=== PATIENT | male | born 1960 | race Caucasian/White ===

== ENCOUNTER 2019-06-18 13:15 | Emergency (ER) | payer MEDICAID, SELFPAY ==
[2019-06-18 13:22] VITALS: BP 180/100; PULSE 102; RESP 18; TEMP 35.8; O2SAT 96
--- NOTE | 2019-06-18 13:31 | ED.GENADUL_ITS ---
Discharge Plan Disposition Patient Disposition: HOME Condition: Stable Discharge Details Chief Complaint: Cellulitis Clinical Impression: Dog bite, Cellulitis of forearm, right Primary Care Provider: Vasu Martin ED Provider: Glenna Sneed Home Meds and New Rx's Prescriptions: New amoxicillin-pot clavulanate [Augmentin] 875-125 mg tablet 1 tab PO BID 10 Days Qty: 20 RF: 0 Continued lisinopril-hydrochlorothiazide 10-12.5 mg tablet 1 tab PO DAILY Qty: 90 RF: 3 albuterol sulfate [ProAir HFA] 90 mcg/actuation HFA aerosol inhaler 1 - 2 puff Inhalation Q4H PRN Qty: 1 RF: 5 Flovent HFA 110 mcg/actuation HFA aerosol inhaler 110 mcg Inhalation BID Qty: 3 RF: 5 Discharge Instructions Instructions: Animal Bite (ED), Cellulitis (ED) Additional Instructions: Take the antibiotics until finished. Alternate tylenol and motrin as needed and directed for pain. If you notice any worsening redness, pain or swelling extending beyond the marker line, return to the emergency department. Follow-up with a primary care doctor within the next 1 to 2 weeks for further evaluation as needed. Discharge Data Discharge Physician: Glenna Sneed Medical Decision Making 59-year-old male presents with dog bite to right wrist with surrounding edema an d erythema noted to right dorsal hand and extending up to right mid forearm. Patient states he was bit by his dog after trying to break up a fight between both of his dogs. He states they are up-to-date on his shots. He states he is not up-to-date on his tetanus. Right dorsal medial wrist with 2 superficial lacerations that are healing. There is mild to moderate cellulitis on the right dorsal hand and forearm. No induration or fluctuance, no evidence of abscess. Neurovascular intact. Pat ient appears nontoxic. Patient given tetanus. He was given with prescription for Augmentin. A marker line was placed around edges of wound. He was advised to return to the ER if he has any worsening signs of infection. He is traveling to [place] in the next 2 days. He is advised to follow-up with any doctor with any worsening symptoms. HPI General Mode of arrival: ambulatory . Date/Time Provider Initiated Documentation: 06/18/19 13:31 . Limitations to Documentation: no limitations . Information obtained by: patient . History of Present Illness 59 year old M presents to the emergency department with the chief complaint of Dog bite right wrist, redness and pain right hand to forearm, and is localized to the right and upper extremity. Patient reports no radiation (Extending from right wrist down to hand and up to forearm). Patient started experiencing this week(s) (1) and it has been constant. No relieving factors improve symptom(s), No exacerbating factors reported . Patient notes no other symptoms.; denies fever/chills. Patient did receive the following treatments prior to arrival, none Related Data Home Medications Medication Instructions Recorded Confirmed lisinopril 10 1 tab PO DAILY #90 tab-cap 09/09/18 06/18/19 mg-hydrochlorothiazide 12.5 mg tablet albuterol sulfate 90 mcg/actuation 1 - 2 puff INHALATION Q4H PRN #1 03/29/19 06/18/19 aerosol inhaler inhaler fluticasone propionate 110 110 mcg INHALATION BID #3 ea 04/17/19 06/18/19 mcg/actuation HFA aerosol inhaler amoxicillin-pot clavulanate 1 tab PO BID 10 Days #20 tab 06/18/19 [Augmentin] Previous Rx's Medication Instructions Recorded lisinopril 10 1 tab PO DAILY #90 tab-cap 09/09/18 mg-hydrochlorothiazide 12.5 mg tablet albuterol sulfate 90 mcg/actuation 1 - 2 puff INHALATION Q4H PRN #1 03/29/19 aerosol inhaler inhaler fluticasone propionate 110 110 mcg INHALATION BID #3 ea 04/17/19 mcg/actuation HFA aerosol inhaler amoxicillin-pot clavulanate 1 tab PO BID 10 Days #20 tab 06/18/19 [Augmentin] Allergies Allergy/AdvReac Type Severity Reaction Status Date / Time pollen,cats Allergy Intermediate Wheezing Uncoded 06/18/19 13:29 General Stated Complaint: Cellulitis SAW: 3 Review of Systems All systems reviewed & are unremarkable except as noted in HPI and below Constitutional Constitutional: Reports as per HPI, Denies chills and Denies fever(s) Eyes Eyes: Denies blurry vision ENT Ears, Nose, Mouth, and Throat: Denies dizziness, Denies sore throat and Denies throat swelling Cardiovascular Cardiovascular: Denies chest pain and Denies dyspnea Respiratory Respiratory: Denies cough and Denies dyspnea Gastrointestinal Gastrointestinal: Denies abdominal pain, Denies diarrhea and Denies vomiting Genitourinary Genitourinary: Denies hematuria and Denies dysuria Musculoskeletal Musculoskeletal: Denies back pain and Denies numbness Integumentary/Breasts Skin/Breast: Denies lesions, Reports erythema and Denies rash Neurologic Neurologic: Denies dizziness, Denies focal weakness and Denies numbness Allergic/Immunologic Allergic/Immunologic: Denies throat swelling PFSH Family History (System 09/14/18 @ 11:39 by Tessy Garcia) Mother Neoplasm LYMPH NODE Father Neoplasm LUNG Sister No problems noted. Social History (System 09/14/18 @ 11:39 by Tessy Garcia) Smoking/Tobacco Use Status: Former Tobacco Use Drug use: Socially Do you feel safe at home: Yes Do you feel safe in your relationship?: Yes Exam Const General: cooperative, healthy appearing and no acute distress HENMT Head: normal to inspection Face and sinus: normal facial exam Eyes General: appearance normal, both eyes and all related structures EOM: EOM intact bilaterally Neck Neck: normal visual inspection and No submandibular swelling Resp Effort & Inspection: normal respiratory effort and able to speak in complete sentences Cardio Rate: regular rate Skin General skin exam: no rashes or lesions noted Neuro General: alert, awake and oriented x3 Cognition: normal cognition Speech: speech normal Motor: muscle tone normal throughout Sensory Exam: no sensory deficits noted Extrem Elbow/forearm/wrist images: 1. Erythema and edema, mild to moderate 2. 2 superficial lacerations, now healing. 3. Erythema and edema, mild to moderate Other: Right radial and ulnar pulses intact. Cap refill less than 2 seconds. Psych Appearance: grossly normal Mental Status: mental status grossly normal Speech and Movement: speech and movement normal Affect: normal affect Course Vital Signs Vital signs: Vital Signs Temperature 96.4 F L 06/18/19 13:22 Pulse 102 H 06/18/19 13:22 Respiratory Rate 18 06/18/19 13:22 Blood Pressure 180/100 H 06/18/19 13:22 Pulse Oximetry 96 06/18/19 13:22 Temperature 96.4 F L 06/18/19 13:22 Temperature Source Temporal Artery Scan 06/18/19 13:22 Pulse 102 H 06/18/19 13:22 Respiratory Rate 18 06/18/19 13:22 Blood Pressure 180/100 H 06/18/19 13:22 Blood Pressure Position Sitting 06/18/19 13:22 Pulse Oximetry 96 06/18/19 13:22 Oxygen Delivery Method Room Air 06/18/19 13:22 Oxygen Flow Rate 0 06/18/19 13:22 Pain Level 3 06/18/19 13:22
--- NOTE | 2019-06-18 14:05 | NUR.NOTE ---
Nursing Note:Animal bite report faxed to [facility]
== END 2019-06-18 13:53 | disposition home or self-care (01) ==
LOC: ER 13:41
PROVIDERS: Emergency Provider Physician Assistant; PCP Emergency Medicine
DX: S61.551A Open bite of right wrist, initial encounter (principal); L03.113 Cellulitis of right upper limb; W54.0XXA Bitten by dog, initial encounter
CPT/HCPCS: 90471; 99284

== ENCOUNTER 2020-01-30 01:59 | Outpatient (CLI) | payer MEDICAID, SELFPAY ==
[2020-01-30 15:23] LABS: CREATININE 0.64 mg/dL (0.70-1.30); Potassium 4.5 mmol/L (3.5-5.1)
== END 2020-01-30 02:19 ==
PROVIDERS: PCP Nurse Practitioner; Visit Provider Nurse Practitioner
DX: I10 Essential (primary) hypertension (principal)
CPT/HCPCS: 36415; 82565; 84132

== ENCOUNTER 2021-03-18 03:33 | Outpatient (CLI) | payer MEDICAID, SELFPAY ==
[2021-03-18 16:13] LABS: Hemoglobin A1C 5.8 % (<5.7)
[2021-03-18 16:43] LABS: ALT 21 U/L (16-63); AST 16 U/L (15-37); Albumin 4.4 g/dL (3.4-5.0); Alkaline Phosphatase 58 U/L (46-116); Bilirubin, Direct 0.1 mg/dL (0.0-0.2); Bilirubin, Total 0.4 mg/dL (0.2-1.0); CREATININE 0.8 mg/dL (0.70-1.30); Potassium 4.1 mmol/L (3.5-5.1); Total Protein 7.7 g/dL (6.4-8.2)
[2021-03-18 22:56] LABS: PSA, Screening 2.5 ng/mL (0.0-3.5)
[2021-03-19 10:58] LABS: Varicella IgG Antibody Positive (See Note)
== END 2021-03-18 03:34 | disposition home or self-care (01) ==
LOC: LBO 03:33
PROVIDERS: PCP Nurse Practitioner; Visit Provider Nurse Practitioner
DX: I10 Essential (primary) hypertension; J45.909 Unspecified asthma, uncomplicated; Z13.1 Encounter for screening for diabetes mellitus; F10.10 Alcohol abuse, uncomplicated; Z11.59 Encounter for screening for other viral diseases; Z12.5 Encounter for screening for malignant neoplasm of prostate
CPT/HCPCS: 36415; 80076; 84153; 86787; 82565; 83036; 84132

== ENCOUNTER 2021-07-28 02:14 | Outpatient (CLI) | payer MEDICAID, SELFPAY ==
[2021-07-28 10:52] LABS: Source Nasal/Nares
[2021-07-28 15:03] LABS: COVID-19 PCR Negative (Negative)
== END 2021-07-28 02:15 | disposition home or self-care (01) ==
LOC: LBO 02:14
PROVIDERS: PCP Nurse Practitioner; Visit Provider Student in an Organized Health Care Education/Training Program
DX: Z20.822 Contact with and (suspected) exposure to COVID-19 (principal); Z01.818 Encounter for other preprocedural examination
CPT/HCPCS: 87635

== ENCOUNTER 2021-07-29 09:56 | Day surgery (SDC) | payer MEDICAID, SELFPAY ==
[2021-07-29 10:22] VITALS: BP 115/77; PULSE 65; RESP 18; TEMP 36.4; O2SAT 97
[2021-07-29] MEDS: Lactated Ringers 1,000 ML 80 ML IV (10:54)
--- NOTE | 2021-07-29 11:00 | HPE_ITS ---
Documented by User: PETER Oglesby 07/29/21 11:16 Assessment and Plan Assessment and plan (1) Dupuytren contracture: Status: Acute Assessment and plan: Dupuytren's contracture release/partial palmar fasciectomy left hand. Details of surgery were discussed with patient as well as risks and pertinent anatomy. All questions were answered. History of Present Illness History of Present Illness Chief Complaint: Bilateral hand contracture. Narrative: Rahul is a 61-year-old male who comes in today for a release of Dupuytren's contracture of his left hand. Both hands have similar involvement of the ring and small fingers.? He has had the nodularity for some time and the contracture has seemingly developed over the past few years.? He is unable to fully straighten the index and middle fingers.? It does not cause him significant pain although he is worried about the overall function of his hand with the worsening contracture of the hands.? Both hands bother him similarly.? He has been reluctant to pursue any treatments but does find that the lack of motion has become more problematic.? He is unable to fully extend the ring finger and little finger of both hands. Since this is interfering with his daily life, Dr. Qureshi does offer a release of the Dupuytren's contracture with partial palmar fasciectomy starting with his left hand. He is anxious to proceed. Pertinent Surgical Information History of asthma and HTN controlled with medication. Patient denies history of CVA, [place], angina, COPD, renal or liver disorders, hepatitis, bleeding disorders, diabetes, immune or thyroid disorders. No complications from anesthesia. Review of Systems Constitutional Constitutional: Denies fever(s) ENT Ears, Nose, Mouth, and Throat: Denies dizziness and Denies sore throat Cardiovascular Cardiovascular: Denies chest pain, Denies palpitations and Denies dyspnea Respiratory Respiratory: Denies cough and Denies dyspnea Gastrointestinal Gastrointestinal: Denies abdominal pain, Denies melena, Denies hematochezia, Denies diarrhea, Denies nausea and Denies vomiting Genitourinary Genitourinary: Denies hematuria and Denies dysuria Neurologic Neurologic: Denies dizziness Endocrine Endocrine: Denies palpitations PFSH All Active Problems HTN (hypertension) (Chronic) Asthma (Chronic) Excessive drinking alcohol (Acute) Dupuytren contracture (Acute) S/P Release LEFT: 07/29/2021 Elevated glucose (Acute 07/14/16) Chronic pain of both knees (Acute 05/06/16) Dry skin dermatitis (Acute) Medical History COPD exacerbation (05/06/16) Heavy alcohol use (05/06/16) History of tobacco use Surgical History (Updated 07/29/21 @ 11:03 by PETER Oglesby) H/O knee surgery Family History (Updated 02/07/20 @ 17:25 by Leona Wray) Mother , 78 Neoplasm LYMPH NODE Father , 76 Neoplasm LUNG Social History (Updated 02/08/21 @ 13:07 by Leona Wray) Smoking/Tobacco Use Status: Former Tobacco Use tobacco type: cigarettes Quit Date: 06/07/09 Tobacco: How many years used: 35 Second Hand Exposure: Yes Smoking risk assessment performed?: Yes Alcohol Intake: current Alcohol Intake frequency: a few times a week Alcohol type: hard liquor Drug use: Daily Substance use type: marijuana Details: Last mj use 07/28/21 Household members: significant other Communication Needs: Corrective Lenses Do you need help understanding health information?: Never Pets and animals: Yes Pets and animals: dog(s) Sexually active: Yes Do you think of yourself as: straight/heterosexual Current gender identity: male What is your relationship status?: living with partner How often do you talk on the phone with friends or family?: three or more times per week How often do you get together with friends or relatives?: twice per week How often do you attend oriental orthodox or sabianist services?: decline to answer Do you belong to any clubs or organized social groups?: yes Panel score (0-1 are the most socially isolated patients): 3 Duration: < 15 minutes/day Janet/Confucianism: Other Special janet needs: No Seatbelt use: always Helmet use: No Drive intox or ride w/intox stake driver: No Do you feel safe at home: Yes Do you feel safe in your relationship?: Yes Additional Social history: Unable to assess privately, in room. Meds Allergies and Home Medications Allergies Allergy/AdvReac Type Severity Reaction Status Date / Time pollen,cats Allergy Intermediate Wheezing Uncoded 07/29/21 10:06 Home Medications Medication Instructions Recorded Confirmed Type cyclosporine 0.05 % eye drops in a 1 drp OP Q12H 12/13/19 07/29/21 History dropperette (Restasis) fluticasone propionate 110 110 mcg INHALATION BID #3 ea 10/09/20 07/29/21 Rx mcg/actuation HFA aerosol inhaler (Flovent HFA) triamcinolone acetonide 0.1 % 1 applic TOPICAL BID #80 g 10/09/20 07/29/21 Rx topical cream hydrochlorothiazide 25 mg tablet 25 mg PO DAILY #90 tab 01/09/21 07/29/21 Rx amlodipine 10 mg tablet 10 mg PO DAILY #90 tab 02/06/21 07/29/21 Rx lisinopril 40 mg tablet 40 mg PO DAILY #90 tab 02/06/21 07/29/21 Rx ammonium lactate 5 % lotion 1 applic TOPICAL BID #226 g 07/01/21 07/29/21 Rx (Lac-Hydrin Five) metoprolol succinate 50 mg 50 mg PO DAILY #90 tab 07/01/21 07/29/21 Rx tablet,extended release 24 hr albuterol sulfate 90 mcg/actuation 1 - 2 puff INHALATION Q4H PRN #1 07/09/21 07/29/21 Rx aerosol inhaler (ProAir HFA) inhaler hydroxyzine HCl 25 mg tablet 25 mg PO TID PRN #30 tab 07/17/21 07/29/21 Rx acetaminophen 500 mg tablet 1,000 mg PO TID #90 tab 07/29/21 Rx hydrocodone 5 mg-acetaminophen 325 1 tab PO Q6H PRN #6 tab 07/29/21 Rx mg tablet ibuprofen 600 mg tablet 600 mg PO TID PRN #90 tab 07/29/21 Rx Exam Const General: cooperative and no acute distress Orientation: alert and awake [facility] Head: normocephalic and atraumatic Eyes Conjunctivae: conjunctivae normal Sclera: sclerae normal Resp Effort & Inspection: normal respiratory effort Auscultation: clear to auscultation bilaterally and wheezes lower bilaterally Cardio Rate: regular rate Rhythm: regular rhythm Heart Sounds: S1 normal, S2 normal and no murmurs Results Last Vital Signs Temp 97.5 F L 07/29/21 10:22 Pulse 65 07/29/21 10:22 Resp 18 07/29/21 10:22 BP 115/77 07/29/21 10:22 Pulse Ox 97 07/29/21 10:22 Documented by User: Romie Qureshi MD 07/29/21 11:54 Assessment and Plan Assessment and plan (1) Dupuytren contracture: Status: Acute Assessment and plan: Dupuytren's contracture release/partial palmar fasciectomy left hand. Details of surgery were discussed with patient as well as risks and pertinent an atomy. All questions were answered. I interviewed and examined the patient with Shabbir Guerrero PA-C. I agree with the documentation as above. The assessment and plan were formulated with my direct involvement. Rahul has bilateral hand Dupuytren's contracture. His left side is bothering the most. He has involvement of the little finger, ring finger, and thumb. Both have contractures. Both have nodules. I discussed treatment options with him previously in the office and he desires to proceed with open partial palmar fasciectomy. I reviewed the surgery once again with him today. I discussed the risk of the procedure to include bleeding, infection, pain, stiffness, damage to nerves and vessels, damage to muscle tendons, recurrence. Despite these risk, he elects to proceed. Romie Qureshi MD FAAOS FAAHKS PFSH All Active Problems HTN (hypertension) (Chronic) Asthma (Chronic) Excessive drinking alcohol (Acute) Dupuytren contracture (Acute) S/P Release LEFT: 07/29/2021 Elevated glucose (Acute 07/14/16) Chronic pain of both knees (Acute 05/06/16) Dry skin dermatitis (Acute) Medical History COPD exacerbation (05/06/16) Heavy alcohol use (05/06/16) History of tobacco use Surgical History (Updated 07/29/21 @ 11:03 by PETER Oglesby) H/O knee surgery Family History (Updated 02/07/20 @ 17:25 by Leona Wray) Mother , 78 Neoplasm LYMPH NODE Father , 76 Neoplasm LUNG Social History (Updated 02/08/21 @ 13:07 by Leona Wray) Smoking/Tobacco Use Status: Former Tobacco Use tobacco type: cigarettes Quit Date: 06/07/09 Tobacco: How many years used: 35 Second Hand Exposure: Yes Smoking risk assessment performed?: Yes Alcohol Intake: current Alcohol Intake frequency: a few times a week Alcohol type: hard liquor Drug use: Daily Substance use type: marijuana Details: Last mj use 07/28/21 Household members: significant other Communication Needs: Corrective Lenses Do you need help understanding health information?: Never Pets and animals: Yes Pets and animals: dog(s) Sexually active: Yes Do you think of yourself as: straight/heterosexual Current gender identity: male What is your relationship status?: living with partner How often do you talk on the phone with friends or family?: three or more times per week How often do you get together with friends or relatives?: twice per week How often do you attend oriental orthodox or sabianist services?: decline to answer Do you belong to any clubs or organized social groups?: yes Panel score (0-1 are the most socially isolated patients): 3 Duration: < 15 minutes/day Janet/Confucianism: Other Special janet needs: No Seatbelt use: always Helmet use: No Drive intox or ride w/intox stake driver: No Do you feel safe at home: Yes Do you feel safe in your relationship?: Yes Additional Social history: Unable to assess privately, in room. Meds Allergies and Home Medications Allergies Allergy/AdvReac Type Severity Reaction Status Date / Time pollen,cats Allergy Intermediate Wheezing Uncoded 07/29/21 10:06 Home Medications Medication Instructions Recorded Confirmed Type cyclosporine 0.05 % eye drops in a 1 drp OP Q12H 12/13/19 07/29/21 History dropperette (Restasis) fluticasone propionate 110 110 mcg INHALATION BID #3 ea 10/09/20 07/29/21 Rx mcg/actuation HFA aerosol inhaler (Flovent HFA) triamcinolone acetonide 0.1 % 1 applic TOPICAL BID #80 g 10/09/20 07/29/21 Rx topical cream hydrochlorothiazide 25 mg tablet 25 mg PO DAILY #90 tab 01/09/21 07/29/21 Rx amlodipine 10 mg tablet 10 mg PO DAILY #90 tab 02/06/21 07/29/21 Rx lisinopril 40 mg tablet 40 mg PO DAILY #90 tab 02/06/21 07/29/21 Rx ammonium lactate 5 % lotion 1 applic TOPICAL BID #226 g 07/01/21 07/29/21 Rx (Lac-Hydrin Five) metoprolol succinate 50 mg 50 mg PO DAILY #90 tab 07/01/21 07/29/21 Rx tablet,extended release 24 hr albuterol sulfate 90 mcg/actuation 1 - 2 puff INHALATION Q4H PRN #1 07/09/21 07/29/21 Rx aerosol inhaler (ProAir HFA) inhaler hydroxyzine HCl 25 mg tablet 25 mg PO TID PRN #30 tab 07/17/21 07/29/21 Rx acetaminophen 500 mg tablet 1,000 mg PO TID #90 tab 07/29/21 Rx hydrocodone 5 mg-acetaminophen 325 1 tab PO Q6H PRN #6 tab 07/29/21 Rx mg tablet ibuprofen 600 mg tablet 600 mg PO TID PRN #90 tab 07/29/21 Rx
--- NOTE | 2021-07-29 11:00 | W.ANESPRE ---
General Info Date of Service Date Performed: 07/29/21 Height: 5 ft 7 in Weight: 87.9 kg Body Mass Index (BMI): 30.3 Surgical Procedure: Operation Date: 07/29/21 11:55 Proposed Procedure Side Surgeon p Open PartialHand Palmar Fasciectomy Left Romie Qureshi MD Meds Allergies and Home Medications Allergies Allergy/AdvReac Type Severity Reaction Status Date / Time pollen,cats Allergy Intermediate Wheezing Uncoded 07/29/21 10:06 Home Medication Medication Instructions Recorded cyclosporine 0.05 % eye drops in a 1 drp OP Q12H 12/13/19 dropperette (Restasis) fluticasone propionate 110 110 mcg INHALATION BID #3 ea 10/09/20 mcg/actuation HFA aerosol inhaler (Flovent HFA) triamcinolone acetonide 0.1 % 1 applic TOPICAL BID #80 g 10/09/20 topical cream hydrochlorothiazide 25 mg tablet 25 mg PO DAILY #90 tab 01/09/21 amlodipine 10 mg tablet 10 mg PO DAILY #90 tab 02/06/21 lisinopril 40 mg tablet 40 mg PO DAILY #90 tab 02/06/21 ammonium lactate 5 % lotion 1 applic TOPICAL BID #226 g 07/01/21 (Lac-Hydrin Five) metoprolol succinate 50 mg 50 mg PO DAILY #90 tab 07/01/21 tablet,extended release 24 hr albuterol sulfate 90 mcg/actuation 1 - 2 puff INHALATION Q4H PRN #1 07/09/21 aerosol inhaler (ProAir HFA) inhaler hydroxyzine HCl 25 mg tablet 25 mg PO TID PRN #30 tab 07/17/21 Current Visit Medications: Current Medications Generic Name Dose Route Start Last Admin Trade Name Freq PRN Reason Stop Dose Admin Ringer's Solution 1,000 mls @ 80 mls/hr 07/29/21 06:00 07/29/21 10:54 IV 08/27/21 23:59 80 mls/hr INFUSION PAULINE Administration Cefazolin Sodium/Dextrose 2 gm in 50 mls @ 100 mls/hr 07/29/21 06:00 Ancef Duplex IVPB 07/29/21 16:00 PREOP PAULINE IV Miscellaneous Supplies 1 each 07/29/21 06:00 Iv Access IV 08/27/21 23:59 DIRECTED PAULINE Sodium Chloride 0 ml 07/29/21 06:00 Normal Saline Flush 10 Ml Syr IV 08/27/21 23:59 PRN PRN Sodium Chloride 0 ml 07/29/21 06:00 Normal Saline 10 Ml Vial IJ 08/27/21 23:59 DIRECTED PRN Sterile Water 0 ml 07/29/21 06:00 Water,Injection,Sterile 10 Ml Vial IJ 08/27/21 23:59 DIRECTED PRN PFSH Active Problems Active Problems: Problem Status Onset Code HTN (hypertension) I10 Asthma J45.909 Excessive drinking alcohol F10.10 Dupuytren contracture M72.0 Elevated glucose 07/14/16 R73.09 Chronic pain of both knees 05/06/16 M25.561, M25.562, G89.29 Dry skin dermatitis L85.3 Medical History Medical History COPD exacerbation (05/06/16) Heavy alcohol use (05/06/16) History of tobacco use Surgical History Surgical History (Updated 07/29/21 @ 11:03 by PETER Oglesby) H/O knee surgery Tobacco Smoking/Tobacco Use Status: Former Tobacco Use Passive smoking exposure: Yes Second hand exposure: Yes Alcohol Alcohol Intake: current Alcohol intake frequency: a few times a week Alcohol type: hard liquor Substance Use Substance use: Daily Substance use type: marijuana Details: Last mj use 07/28/21 Vital Signs and Lab Results Vital Signs Most Recent Vital Signs in EMR: Most Recent Vital Signs Temp Pulse Resp BP Pulse Ox 36.4 C L 65 18 115/77 97 07/29/21 10:22 07/29/21 10:22 07/29/21 10:22 07/29/21 10:22 07/29/21 10:22 Lab Results Blood Type / Crossmatch: No Data to Display Complete Blood Count: No Data to Display Complete Metabolic Panel: No Data to Display Liver Function Panel: No Data to Display Coagulation Panel: No Data to Display Cardiac Panel: No Data to Display Arterial Blood Gas: No Data to Display Venous Blood Gas: No Data to Display Pancreas Panel: No Data to Display Thyroid Panel: No Data to Display Infectious Disease: Coronavirus (COVID-19)(PCR) Negative (Negative) 07/28/21 09:29 07/28/21 Coronavirus 2019 Source Nasal/Nares 07/28/21 09:29 07/28/21 Blood Cultures: No Data to Display Toxicology Panel: No Data to Display Anesthesia Assessment and Plan Anesthesia History Personal History: No History of Anesthesia Complications Family History: No Family History of Anesthesia Complications Exercise Tolerance Exercise Tolerance: Metabolic Equivalents>4 Pertinent Negatives Pertinent Negatives: No Symptoms of GERD, No Major Cardiovascular Symptoms or Complaints, No Major Pulmonary Symptoms or Complaints (DAILY MARIJUANA USE / mild asthma) and No History of CVA/TIA Cardiac & Pulmonary Exam Cardiac Exam: Normal S1/S2 Heart Sounds Pulmonary Exam: Clear Bilateral Breath Sounds Implantable Cardiac Device Does patient have a Pacemaker or an ICD?: No Airway Exam Known Difficult Airway: No Mallampati Class: 1 Mouth Opening: Normal (> 3cm) Thyromental Distance: Greater than 3 cm Neck Range of Motion: Full ROM Neck Circumference: Normal Teeth Condition: Normal Dentition ASA Classification ASA Score: ASA 2 Emergency Case?: No NPO Status NPO Status: NPO Clears >2 hours, Solids >8 hours Anesthesia Plan Resuscitation Status: Full Code Anesthesia Technique: General Anesthesia Airway Planned: Natural Airway Monitors Used: Standard Monitors
[2021-07-29 11:05] VITALS: BMI 30.3
--- NOTE | 2021-07-29 11:46 | W.PM.DSUDISC ---
Discharge Plan Disposition Patient Disposition: HOME Condition: Good Discharge Details Reason For Visit: Left partial fasciectomy Attending Provider: Romie Qureshi Primary Care Provider: Kat Avina Home Meds and New Rx's Prescriptions: New hydrocodone-acetaminophen 5-325 mg tablet 1 tab PO Q6H PRN (Reason: pain) Qty: 6 0RF acetaminophen 500 mg tablet 1,000 mg PO TID Qty: 90 0RF ibuprofen 600 mg tablet 600 mg PO TID PRN (Reason: pain) Qty: 90 0RF Continued amlodipine 10 mg tablet 10 mg PO DAILY Qty: 90 4RF lisinopril 40 mg tablet 40 mg PO DAILY Qty: 90 3RF Lac-Hydrin Five 5 % lotion 1 applic topical BID Qty: 226 3RF metoprolol succinate 50 mg tablet extended release 24 hr 50 mg PO DAILY Qty: 90 4RF Restasis 0.05 % dropperette 1 drp OP Q12H 0RF Flovent HFA 110 mcg/actuation HFA aerosol inhaler 110 mcg Inhalation BID Qty: 3 5RF triamcinolone acetonide 0.1 % cream 1 applic topical BID Qty: 80 2RF hydrochlorothiazide 25 mg tablet 25 mg PO DAILY Qty: 90 4RF albuterol sulfate [ProAir HFA] 90 mcg/actuation HFA aerosol inhaler 1 - 2 puff Inhalation Q4H PRN Qty: 1 5RF hydroxyzine HCl 25 mg tablet 25 mg PO TID PRN (Reason: itching) Qty: 30 5RF Discharge Instructions Additional Instructions: Dupuytren's Contracture Discharge Instructions Activity: You may use your fingers for light activity. You should limit any excessive motion or forceful gripping until the sutures have been removed. Dressings: You should keep the initial surgical dressing in place for at least 3 days. You may remove your dressings and get the wound wet after 3 days. You should keep the dressings and the wound clean at all times. You may keep the initial dressing in place until your follow-up but keep the wound covered with light gauze until the sutures are removed. Medications: - You should take Tylenol and Ibuprofen around the clock as prescribed or per tub rider's recommendations. - You have Hydrocodone prescribed for breakthrough pain control. Take only as needed and limit use as much as possible. This may cause constipation. Follow-up: 7-10 days for wound check and suture removal. Referrals: Romie Qureshi MD [ [facility] STAFF PHYSICIAN] - Shower/Bathe:: 72 hours Diet:: As Tolerated Discharge Orders Discharge Orders: Discharge Order (Routine); Ordered 07/29/21 Ordered By: Shabbir Guerrero DS: Diagnosis Discharge Diagnosis (1) Dupuytren contracture: Status: Acute
[2021-07-29] MEDS: ceFAZolin 2 GM/50 ML BAG IVPB (12:21)
[2021-07-29] MEDS: Lidocaine 1% Multi-Dose 50 ML VIAL (13:00)
[2021-07-29] MEDS: Bupivacaine 0.5% Pres-Free 30 ML VIAL (13:00)
[2021-07-29 13:42] VITALS: BP 118/73; PULSE 64; RESP 16; TEMP 36.3; O2SAT 99
[2021-07-29] MEDS: HYDROcodone 5/Acetaminophen 325 TAB PO (13:53)
[2021-07-29 14:11] VITALS: BP 111/74; PULSE 60; RESP 18; TEMP 36.6; O2SAT 100
--- NOTE | 2021-07-29 14:11 | W.ANESPOSTOP ---
Postoperative Evaluation Date, Time and Location Date Performed: 07/29/21 Time Performed: 14:11 Patient Location: Day Surgery Unit Vital Signs Most Recent Imported Vital Signs: Most Recent Vital Signs Temp Pulse Resp BP Pulse Ox 36.3 C L 64 16 118/73 99 07/29/21 13:42 07/29/21 13:42 07/29/21 13:42 07/29/21 13:42 07/29/21 13:42 Pain Score Most Recent Pain Score: Most Recent Pain Score Pain Level 6 07/29/21 13:42 Assessment Mental Status: Awake (Alert & Oriented to Patient Baseline) Airway and Respiratory Function: Patent airway with normal (patient baseline) respiratory exam Cardiovascular Function: Hemodynamically Stable Hydration Status: Adequately Hydrated Nausea & Vomiting: No Nausea or Vomiting Pain: Pt. Denies Any Pain Peripheral Nerve Block: Patient did not receive a nerve block
--- NOTE | 2021-07-29 18:30 | ROE_ITS ---
Date of service: 07/29/21 Time of Service: 13:00 Operative Note Operative Note DATE OF PROCEDURE: 07/29/21 PRE-OP DIAGNOSIS: Left Dupuytren's contracture involving the thumb, ring finger, and little finger POST-OP DIAGNOSIS: same PROCEDURE: Partial palmar fasciectomy of the left hand involvement of the thumb, ring finger and little finger SURGEON: Romie Qureshi ANESTHESIA TYPE: General:No Airway Refer to Anesthesia Record ESTIMATED BLOOD LOSS: 20 PATHOLOGY: none sent COMPLICATIONS: None Patient was transported to: same day Patient's condition: stable Indications: I have seen Rahul in clinic for symptoms of Dupuytren's disease. He had significant nodularity as well as contracture of the ring finger, little finger and the thumb, which was developing. The symptoms had not responded to conservative measures. His symptoms seem to be worsening. Therefore, I offered partial palmar fasciectomy. I reviewed the risks of the procedure to include, but not limited to, bleeding, infection, pain, stiffness, incomplete release, damage to nerves or vessels, recurrence. Despite these risks, the patient elected to proceed. Findings: There were dense cords throughout the entirety of the hand. Large nodules were also present in the cord thickness was quite impressive, some measuring 5 to 6 mm in diameter. Primary central cords were released from the thumb, ring finger, and little finger extending onto the palmar proximal phalanx of each digit. Procedure Description: Neck was greeted in the preoperative holding area where the correct side was identified and marked. The consent was reviewed with the patient and signed. All questions were answered. The history and physical was updated. Neck was taken back to the operating room. The patient was placed into the supine position on the operating room table with the left arm on an arm board. All bony prominences were well padded. No prophylactic antibiotics were administered since this was a clean, elective hand surgical case. The left arm was then prepped with Chloraprep and draped in a standard fashion with stockinette and extremity drape. A timeout to confirm correct identity, side and site, procedure, allergies, anesthesia, and medical concerns was performed. A general uninstrumented area was utilized due to his significant anxiety. The surgical site was marked with a Nicky type incisions centered over the cords of the affected thumb, ring finger, and small finger. These planned surgical sites were then anesthetized with a mixture of 1% lidocaine and 0.5% bupivacaine. The hand was placed into a hand toney and then I began the surgery starting with the thumb. No tourniquet was utilized. Bleeding was controlled with bipolar electrocautery. A Nicky type incision was made overlying the thumb. The central cord was easily identifiable. Dissection was carried proximally to his origination near the distal extent of the transverse carpal ligament and the base of the thenar eminence. It was transected sharply and then elevated out of the wound clearing attachments between it and the deeper tissues as it was removed from a proximal to distal direction. Moving distally there was some horizontally running fibers which were transected. This was then dissected all the way up just past the A1 dariela where it seemed to attach to the flexor tendon sheath overlying the proximal phalanx of the thumb. It was transected in this level and removed in whole. The wound was inspected and there is no other nodules or cords present. There were no crossing neurovascular structures. Attention then turned to the ring finger. There was significant nodularity which made initial dissection difficult and teasing off the skin from the underlying Dupuytren's nodule. Once the nodule was exposed I then continue to expose the central cord proximally. Was a seem to be at its origin transected then began to elevated out of the wound from a proximal to distal direction. There was some natatory components as well which were transected but not indivi dually dissected out and removed. This was continued onto the proximal phalanx where it terminated just proximal to the middle phalanx there were no crossing neurovascular structures. The cord was removed in whole and then the finger was inspected for any other cords. There was a deeper cord which seem to mimic the same direction of the central cord but terminated at the A1 dariela. This was al so removed. The finger MP joint had complete extension whereas it did have a 40 degree contracture previously. Attention was then turned to the little finger. The Nicky incision was made overlying the cord. Once again dissection was carried proximally and the cord was transected. Was elevated out of the hand proximal to distal direction. There also was a strong natatory component towards the ring finger which was transected. Continued onto the proximal phalanx of the little finger where there was a large nodule which was removed. The cord was then followed up just proximal to the PIP joint where it was transected. There is still some bulk of abnormal tissue which was dissected out and removed. Each wound was then irrigated. There was some minor ooze but no significant bleeding. There is no apparent neurovascular injury as there was no tourniquet used. Range of motion was also inspected which showed half full passive extension of the IP joint of the thumb and MP joint of the thumb as well as the PIP and MP joint of the ring finger and little finger. The wounds were once againirrigated and the skin was closed with a 4-0 Nylon. This was dressed with gauze and a Conform dressing. I placed him into a volar resting splint to keep the fingers and MP joints in a relatively extended position. The patient tolerated the procedure well and was returned to the PACU in a stable condition suffering no known complication.
== END 2021-07-29 14:41 | disposition home or self-care (01) ==
PROVIDERS: PCP Nurse Practitioner; Visit Provider Student in an Organized Health Care Education/Training Program
PROC: (CPT 26121; principal; 2021-07-29 11:45)
DX: M72.0 Palmar fascial fibromatosis [Dupuytren] (principal); I10 Essential (primary) hypertension; J45.909 Unspecified asthma, uncomplicated; F10.10 Alcohol abuse, uncomplicated; R73.9 Hyperglycemia, unspecified
CPT/HCPCS: 26121; J0690; J1100; J1885; J2001; J2250; J2405; J3010

== ENCOUNTER 2022-06-04 02:25 | Outpatient (CLI) | payer MEDICAID, SELFPAY ==
[2022-06-04 15:27] LABS: Hemoglobin A1C 5.8 % (<5.7)
[2022-06-04 15:54] LABS: CREATININE 1.1 mg/dL (0.70-1.30); Estimated GFR 76.37 (mL/min/1.73m2)
== END 2022-06-04 02:26 | disposition home or self-care (01) ==
LOC: LBO 02:25
PROVIDERS: PCP Nurse Practitioner Family; Visit Provider Family Medicine
DX: I10 Essential (primary) hypertension (principal); R73.9 Hyperglycemia, unspecified
CPT/HCPCS: 36415; 82565; 83036; 84132

== ENCOUNTER 2022-07-08 10:03 | Day surgery (SDC) | payer MEDICAID, SELFPAY ==
[2022-07-08 10:00] VITALS: BP 122/88; PULSE 55; RESP 18; TEMP 36.5; O2SAT 99
--- NOTE | 2022-07-08 10:10 | W.PM.DSUDISC ---
Date of service: 07/08/22 Time of Service: 10:14 Discharge Plan Disposition Patient Disposition: Home Condition: Good Discharge Details Reason For Visit: Right Dupuytren's Contracture Attending Provider: Romie Qureshi Primary Care Provider: Aundrea Garza Home Meds and New Rx's Prescriptions: New acetaminophen 500 mg tablet 1,000 mg PO Q8H PRN Qty: 90 0RF Rx Instructions: Take two tablets up to every 8 hours as needed for pain ibuprofen 600 mg tablet 600 mg PO TID PRN (Reason: pain) Qty: 60 0RF hydrocodone-acetaminophen 5-325 mg tablet 1 tab PO Q6H PRN (Reason: severe pain) Qty: 6 0RF Rx Instructions: Take one tablet up to every 6 hours as needed for severe postoperative pain Continued Lac-Hydrin Five 5 % lotion 1 applic topical BID Qty: 226 3RF cyclosporine [Restasis] 0.05 % dropperette 1 drp OP Q12H metoprolol succinate 50 mg tablet extended release 24 hr 50 mg PO DAILY Qty: 90 4RF amlodipine 10 mg tablet 10 mg PO DAILY Qty: 90 3RF lisinopril 40 mg tablet 40 mg PO DAILY Qty: 90 3RF hydrochlorothiazide 25 mg tablet 25 mg PO DAILY Qty: 90 3RF triamcinolone acetonide 0.1 % cream 1 applic topical BID Qty: 453.6 2RF fluticasone propionate [Flovent HFA] 110 mcg/actuation HFA aerosol inhaler 110 mcg Inhalation BID Qty: 3 5RF hydroxyzine HCl 25 mg tablet 25 mg PO TID PRN (Reason: itching) Qty: 30 5RF albuterol sulfate [ProAir HFA] 90 mcg/actuation HFA aerosol inhaler 1 - 2 puff Inhalation Q4H PRN Qty: 1 11RF Discontinued acetaminophen 500 mg tablet 1,000 mg PO TID Qty: 90 0RF ibuprofen 600 mg tablet 600 mg PO TID PRN (Reason: pain) Qty: 90 0RF Discharge Instructions Additional Instructions: Dupuytren's Contracture Discharge Instructions Activity: You may use your fingers for light activity. You should limit any excessive motion or forceful gripping until the sutures have been removed. Dressings: You should keep the initial surgical dressing in place for at least 3 days. You may remove your dressings and get the wound wet after 3 days. You should keep the dressings and the wound clean at all times. You may keep the initial dressing in place until your follow-up but keep the wound covered with light gauze until the sutures are removed. Medications: - You should take Tylenol and Ibuprofen around the clock as prescribed or per gas derrick operator's recommendations. - You have Hydrocodone prescribed for breakthrough pain control. Take only as needed and limit use as much as possible. This may cause constipation. Follow-up: 7-10 days for wound check and suture removal. Referrals: Romie Qureshi MD [ [facility] STAFF PHYSICIAN] - Activity:: Elevate Remove Dressings/Wound Care:: 72 hours Shower/Bathe:: 72 hours Diet:: As Tolerated Discharge Orders Discharge Orders: Discharge Order (Routine); Ordered 07/08/22 Ordered By: Anne Duggan
[2022-07-08] MEDS: Lactated Ringers 1,000 ML 80 ML IV (10:43)
[2022-07-08] MEDS: ceFAZolin 2 GM/50 ML BAG IVPB (12:18)
[2022-07-08] MEDS: Lidocaine 1% Pres-Free W/EPI 1/200,000 10 ML VIAL (12:27)
[2022-07-08] MEDS: Sodium Bicarbonate 50 MEQ/50 ML VIAL (12:27)
[2022-07-08 13:25] VITALS: BP 135/77; PULSE 53; RESP 16; TEMP 36.6; O2SAT 100
--- NOTE | 2022-07-08 21:04 | ROE_ITS ---
Date of service: 07/08/22 Time of Service: 13:20 Operative Note Operative Note DATE OF PROCEDURE: 07/09/22 PRE-OP DIAGNOSIS: Right Hand Dupuytren's Disease involving palm and ring and little fingers POST-OP DIAGNOSIS: same PROCEDURE: Partial palmar fasciectomy involving the ring and little fingers, right hand SURGEON: Romie Qureshi ANESTHESIA TYPE: Local By Surgeon Refer to Anesthesia Record ESTIMATED BLOOD LOSS: 20 PATHOLOGY: none sent COMPLICATIONS: None Patient was transported to: same day Patient's condition: stable Indications: I have seen Rahul in clinic for symptoms of Dupuytren's contracture involving the right hand, palm as well as ring and little fingers. He had severe contracture on the left hand which was treated with partial palmar fasciectomy with good results. Given the progression of his contracture with at least 30 degrees of flexion contracture of the MP joint with large cords about the palm extending onto the digits, I recommended surgical release. I discussed the risk of the procedure to include bleeding, infection, pain, stiffness, damage to nerves and vessels, damage to muscle and tendons, recurrence, skin healing difficulties. Despite these risk he elected to proceed. Findings: There is a large, dense central cord extending from the palm onto the ring and little fingers. The bulk of the pathologic tissue was excised and manipulation was performed such that he was able to demonstrate complete extension of the ring finger and little finger. The skin was quite taut and some mobility of the skin was necessary in order to close with minimal tension. Procedure Description: Rahul was greeted in the preoperative holding area where the correct side was identified and marked. The consent was reviewed with the patient and signed. All questions were answered. He was taken back to the operating room. The patient was placed into the supine position on the operating room table with the right arm on an arm board. All bony prominences were well padded. Prophylactic antibiotics in the form of ce fazolin were administered. The right arm was then prepped with Chloraprep and draped in a standard fashion with stockinette and extremity drape. A timeout to confirm correct identity, side and site, procedure, allergies, anesthesia, and medical concerns was performed. The surgical site was marked as a Nicky type incision extending over the cords, converging in the palm. The surgical site was anesthetized with 1% lidocaine with epinephrine and buffered with sodium bicarbonate. Once this had fully set up I then proceeded by incising the skin and the desired locations. These incisions were taken to the skin only. Attachment between the cords and the skin were released with tenotomy scissors. Once the cord was primarily identified and then was transected proximally and resected out the palm from a proximal to distal direction. Starting with the little finger I remove the cord up to the level of the MP joint. I then continue to dissect out central cord material over the base of the proximal phalanx of the ring finger. No neurovascular bundles were identified. This appeared to be an extension of the central cord and no spiral cord component. Once the bulk of this was resected off of the little finger I then manipulated the finger. This manipulation allowed complete extension and even some hyperextension of the MP joint with neutral extension of the PIP joint. Attention was then turned to the palm and the middle finger. Similarly, the cord was resected from the proximal to distal direction. The bulk of the tissue material was then removed from the base of the proximal phalanx and resected deeply without any crossing neurovascular bundles identified. Manipulation was performed which once again showed ability to hyperextend the MP joint with neutral extension of the PIP joint. Rahul was able to demonstrate active extension to neutral much more than previous. The hand was then once more inspected and then irrigated and the skin was closed with a 4-0 Nylon. During closure, the skin was quite tight. Therefore, I mobilized some skin from the palm to help mobilize the skin structures to prevent any tension at the closure sites. This was dressed with gauze and a Conform dressing. The patient tolerated the procedure well and was returned to the Same Day Surgery area in a stable condition suffering no known complication.
== END 2022-07-08 13:48 | disposition home or self-care (01) ==
PROVIDERS: PCP Nurse Practitioner Family; Visit Provider Student in an Organized Health Care Education/Training Program
PROC: (CPT 26123; principal; 2022-07-08 12:30)
DX: M72.0 Palmar fascial fibromatosis [Dupuytren] (principal)
CPT/HCPCS: 26123; 26125; 96365; J0690

== ENCOUNTER 2024-08-10 03:06 | Outpatient (CLI) | payer MEDICAID, SELFPAY ==
[2024-08-10 12:29] LABS: HCT 44.9 % (40.0-50.0); HGB 14.5 g/dL (13.5-17.5); MCH 30.5 pg (27.0-33.0); MCHC 32.3 % (32.0-36.0); MCV 95 fL (80-95); Platelet Count 297 10^3/uL (130-400); RBC 4.75 10^6/uL (4.36-5.78); RDW 13.2 % (11.8-14.1); RDW-SD 46.6 fL; WBC 6.41 10^3/uL (4.4-10.8)
[2024-08-10 14:45] LABS: ALT 16 U/L (16-63); AST 12 U/L (15-37); Albumin 4.2 g/dL (3.4-5.0); Alkaline Phosphatase 62 U/L (46-116); Anion Gap 6.8 mmol/L (3-11); BUN 10 mg/dL (7-18); Bilirubin, Total 0.3 mg/dL (0.2-1.0); CO2 29.2 mmol/L (21.0-32.0); CREATININE 0.9 mg/dL (0.70-1.30); Calcium 9.3 mg/dL (8.5-10.1); Calculated LDL 161 mg/dL (<100); Chloride 105 mmol/L (98-107); Cholesterol 236 mg/dL (<200); Estimated GFR 95.97 (mL/min/1.73m2); Glucose 113 mg/dL (74-106); HDL Cholesterol 58 mg/dL (>or=40); Potassium 4.9 mmol/L (3.5-5.1); Sodium 141 mmol/L (136-145); TSH (W/Ref FT4) 2.53 uIU/mL (0.36-3.74); Total Protein 7.4 g/dL (6.4-8.2); Triglyceride 89 mg/dL (<150)
[2024-08-10 14:54] LABS: Hemoglobin A1C 5.9 % (<5.7)
[2024-08-10 18:32] LABS: PSA, Screening 2.7 ng/mL (<=4.5)
== END 2024-08-10 03:07 | disposition home or self-care (01) ==
LOC: LOS 03:06
PROVIDERS: PCP Nurse Practitioner Family; Visit Provider Nurse Practitioner Family
DX: Z00.00 Encounter for general adult medical examination without abnormal findings (principal); I10 Essential (primary) hypertension; R73.09 Other abnormal glucose; J45.909 Unspecified asthma, uncomplicated; F10.10 Alcohol abuse, uncomplicated; Z12.5 Encounter for screening for malignant neoplasm of prostate
CPT/HCPCS: 36415; 80053; 80061; 84153; 85027; 83036; 84443